=== PATIENT | female | born 1945 | race Caucasian/White ===

== ENCOUNTER → 2018-10-15 | Outpatient (CLI) | payer OTHER, MEDICARE | LOC: BHLMT 15:30 | PROVIDERS: ATTEND Internal Medicine Cardiovascular Disease | DX: R07.9 Chest pain, unspecified (principal); R00.2 Palpitations; I25.10 Atherosclerotic heart disease of native coronary artery without angina pectoris; E78.5 Hyperlipidemia, unspecified; I10 Essential (primary) hypertension; I25.2 Old myocardial infarction; Z95.5 Presence of coronary angioplasty implant and graft | CPT/HCPCS: 93005-PO ==

== ENCOUNTER 2018-12-13 07:56 | Observation (INO) | payer OTHER, MEDICARE ==
[2018-12-13] MEDS ORDERED: NS 1,000 ML IV ONE (07:57)
[2018-12-13] MEDS ORDERED: LIDOCAINE 1% 300 MG/30 ML SDV ONE (08:25)
[2018-12-13] MEDS ORDERED: HEPARIN 10,000 UNIT/10 ML MDV (1,000 UNIT/ML) ONE ×2 (08:25→08:26)
[2018-12-13] MEDS ORDERED: HEPARIN/DEXTROSE 25,000 UNIT/500 ML BAG ONE (08:26)
[2018-12-13] MEDS ORDERED: BUPIVACAINE 0.75% 10 ML SDV ONE (08:26)
[2018-12-13] MEDS ORDERED: ISOPROTERENOL HCL/D5W 0.2 MG/50 ML BAG IV ONE (08:26)
[2018-12-13 08:45] LABS: PLATELET COUNT 227 10^3/uL (150-400)
--- NOTE | 2018-12-13 09:13 | PDGENHP ---
History & Physical Chief Complaint: PVCs History of Present Illness: Symptomatic PVCs, idiopathic etiology Relevant Physical Exam: A+Ox4, RR with frequent ectopy, no MRG, CTAB Cardiorespiratory Assessment: PVCs -> ablation
[2018-12-13 09:31] LABS: PROTIME(PATIENT) 12.8 SEC (12.0-15.0)
--- NOTE | 2018-12-13 09:31 | PDANEPAE ---
ANE History of Present Illness PVC ablation ANE Past Medical History - Cardiovascular History Hx Hypertension: Yes Hx Arrhythmias: Yes Hx Chest Pain: No Hx Coronary Artery / Peripheral Vascular Disease: Yes - Pulmonary History Hx COPD: No Hx Asthma/Reactive Airway Disease: No Hx Recent Upper Respiratory Infection: No Hx Oxygen in Use at Home: No Hx Sleep Apnea: No ANE Review of Systems Review of systems is: negative Review of Systems: - Exercise capacity Exercise capacity: >=4 METS ANE Patient History - Allergies Allergies/Adverse Reactions: Beta-Blockers (Beta-Adrenergic Bloc Allergy (Severe, Verified 12/13/18 08:43) Other-Enter Comments Quinolones Allergy (Severe, Verified 12/13/18 08:44) Anaphylaxis Tetracyclines Allergy (Severe, Verified 12/13/18 08:44) Giovani Tylor Syndrome Sulfa (Sulfonamide Antibiotics) Allergy (Intermediate, Verified 12/13/18 08:44) Rash nebivolol [From Bystolic] Allergy (Verified 12/10/18 10:47) Dyspnea - Home Medications Home medications: home medication list seen and reviewed Home Medications: Albuterol [Proventil Inhaler HFA (*)] 1 - 2 puffs IH Q4H PRN 12/10/18 [Last Taken 12/13/18] Fluticasone Hfa 220 Mcg [Flovent 220 MCG Hfa MDI (*)] 1 puffs IH BID 12/10/18 [ Last Taken 12/13/18] Pantoprazole Sodium [Protonix 40mg (*)] 40 mg PO DAILY 12/10/18 [Last Taken ] Ranitidine HCl [Zantac] 150 mg PO HS 12/10/18 [Last Taken 12/13/18] Zolpidem Tartrate [Ambien] 10 mg PO HS PRN 12/10/18 [Last Taken 12/12/18] celeCOXIB [Celebrex (*)] 200 mg PO DAILY 12/10/18 [Last Taken 12/12/18] Aspirin/Sod Bicarb/Citric Acid [[place] Es Tab Eff] 3 tab PO BID 12/13/18 [ Last Taken 12/12/18 15:00] - Anes Hx Anes Hx: awareness under anesthesia - Smoking Hx Smoking Status: Former smoker ANE Labs/Vital Signs - Labs Result Diagrams: 12/13/18 08:10 12/13/18 08:10 - Vital Signs Height: 165.1 cm Weight: 85 kg ANE Physical Exam - Airway Neck exam: FROM Mallampati Score: Class 2 Mouth exam: normal dental/mouth exam - Pulmonary Pulmonary: no respiratory distress - Cardiovascular Cardiovascular: regular rate and rhythym - ASA Status ASA Status: III ANE Anesthesia Plan Anesthesia Plan: general endotracheal anesthesia
[2018-12-13] MEDS ORDERED: ROCURONIUM 100 MG/10 ML VIAL ONE (09:33)
[2018-12-13] MEDS ORDERED: fentaNYL 100 MCG/2 ML INJ ONE (09:33)
[2018-12-13] MEDS ORDERED: PROPOFOL 200 MG/20 ML VIAL ONE (09:34)
[2018-12-13] MEDS ORDERED: PROPOFOL/EMULSION 500 MG/50 ML BOTTLE IV ONE ×3 (09:41→12:04)
[2018-12-13] MEDS ORDERED: DEXAMETHASONE 4 MG/ML VIAL ONE (10:13)
[2018-12-13] MEDS ORDERED: PHENYLEPHRINE 10 MG/ML SDV ONE (10:13)
--- NOTE | 2018-12-13 10:21 | POSTANESTH ---
Post Anesthetic Evaluation Cardiovascular Status: Normal, Stable Respiratory Status: Normal, Stable Level of Consciousness/Mental Status: Can Participate in Eval, Alert and Oriented Pain Control: Adequate, Prn Tx Ordered Nausea/Vomiting Control: Adequate, Prn Tx Ordered Complications Possibly Related to Anesthesia: None Noted
--- NOTE | 2018-12-13 11:27 | CPEKG ---
Test Reason : OPEN Blood Pressure : / mmHG Vent. Rate : 103 BPM Atrial Rate : 044 BPM P-R Int : 188 ms QRS Dur : 098 ms QT Int : 375 ms P-R-T Axes : 067 058 044 degrees QTc Int : 491 ms Sinus rhythm Ventricular bigeminy Borderline T wave abnormalities Confirmed by Jacinto Guardado ([id number]) on 12/13/2018 11:26:27 AM Referred By: Diogenes Ventura Confirmed By:Jacinto Guardado
[2018-12-13] MEDS ORDERED: PROTAMINE SULFATE 50 MG/5 ML VIAL IVP ONE (13:09)
[2018-12-13] MEDS ORDERED: SUGAMMADEX SODIUM 200 MG/2 ML VIAL IVP ONE (13:09)
[2018-12-13] MEDS ORDERED: IOPAMIDOL (ISOVUE-300) 100 ML BTL ONE (13:10)
[2018-12-13] MEDS ORDERED: HYDROCODONE/APAP 5/325 TAB PO PRN (13:33)
[2018-12-13] MEDS ORDERED: ACETAMINOPHEN 325 MG TAB PO PRN (13:33)
[2018-12-13] MEDS ORDERED: ALBUTEROL 60 PUFFS/8 GM MDI IH PRN (13:36)
[2018-12-13] MEDS ORDERED: ZOLPIDEM TARTRATE 5 MG TAB PO PRN (13:49)
--- NOTE | 2018-12-13 14:29 | EPPROC ---
Electrophysiology Procedure Note: Date: 12/13/2018 [employer] House Supervisor: Jeronimo Ventura MD Procedures performed: Comprehensive EP study, catheter ablation of PVC 12218 Add on ablation of SVT 88755 Coronary sinus recording/pacing 61761 Intracardiac ECHO 93661 Transseptal access [id number] Attempted induction of arrhythmia following drug infusion 42259 Indications: 73-year-old female with symptomatic frequent unifocal PVCs, up to bigeminal at times, intolerant of beta-blockers. Techniques: Following informed consent, the patient was brought to the EP lab in a fasting nonsedated state, in sinus rhythm with frequent PVCs. PVC morphology was LBLI, slurred onset, QS in V1, with V2/3 transition (suspected lateral aspect RVOT). General anesthesia was provided by the anesthesiology service. Bilateral groins were prepped and draped in usual sterile fashion. 1 % lidocaine was infiltrated over the right femoral vessels, and under ultrasound guidance vascular access was obtained in the right femoral vein x3 ( 5 Qatari, 8 Qatari, Mobi 8.5 Qatari sheaths) and in the right femoral artery x1 (4 Qatari sheath, later upsized to ArrowFlex 8 Qatari sheath). Weight based heparin bolus and drip was administered, targeting ACT 300-350 seconds. A Sound Star intracardiac echo catheter was inserted in 1 of the right femoral venous sheaths, and advanced to right atrium. A Carto sound map was created of the CS ostium, aortic and pulmonic valves, LMCA and RCA takeoffs, RV, LV, papillary muscles. A Smart Touch SF ablation catheter was inserted, and used to create a CARTO map of the RV. Both pace mapping and LAT mapping were utilized to localize the unifocal PVC. Earliest activation in the RV was found on the anteroseptal aspect of the RV OT, with 98% pace match and pre QRS potentials of -35 milliseconds. RF ablation was performed in this region at 30- 40 w power, however following local ablation in this region, the PVCs were suppressed but not entirely eliminated. Intracardiac echo survey of the ablated region suggested that the targeted region was bounded by the septal LVOT as well as the LV [place]. The decision was made to proceed with left- sided ablation. A BRK 1 needle was inserted in the mobi sheath, and the system was positioned at the fossa ovalis under ICE guidance. The fossa was crossed, and the transseptal sheath was advanced to the mid LA. The sheath was connected to continuous saline irrigation. The ablation catheter was advanced to the LV, and attempt was made to map the septal LVOT; however, due to the small LV cavity size, manipulation of the catheter was quite difficult in the LV , and the decision was made for retrograde approach. The 4 Qatari arterial sheath was upsized to the 8 Qatari arrow flex sheath, and a retrograde approach was taken with the ablation catheter. The ablation catheter was prolapsed across aortic valve, and LAT mapping of the septal aspect of the LVOT was undertaken. The local activation in this region was well past the QRS onset. RF ablation was performed in the septal LVOT, abutting the previously placed RV OT lesion set, at 30-35 Ayoub. Unfortunately, the ambient PVCs were still ongoing. The ablation catheter was then positioned in the coronary sinus, and an attempt was made to advance the catheter to the distal CS/AIV. However, the ablation catheter could not be advanced beyond the 2 o'clock position on the CS. At this stage, the decision was made to terminate attempts for further PVC ablation, given a relative suppression of the ambient PVC. During PVC mapping and ablation, the patient demonstrated several episodes of sustained narrow complex tachycardia, long RP, which initiated reliably with ventricular ectopy with VA jump; and was easily terminated with either ventricular or atrial overdrive pacing; during atrial overdrive pacing, onset of AV block reliably predicted termination of the SVT. 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 Thus, following PVC ablation, comprehensive EP study was undertaken to better identify this SVT. The ice catheter was removed, and a quad catheter was positioned in the RVa; decapolar catheter in the CS; ablation catheter at the his position (AH 106ms, HV 44ms). Antegrade conduction, pacing from CS proximal bipole, showed no evidence of dual AV keiko physiology. AV BLC 420ms AERP 600/270ms AVN ERP <600/280ms, 600/350/380ms Retrograde conduction from RVa showed evidence of dual AV keiko physiology; nonsustained SVT was inducible with VA jump. VA BCL 500ms With VA jump, 3-4 beats of nonsustained SVT was reliably inducible - long RP, TCL 430ms, concentric RAAS. 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 A CARTO map was created of the right atrium, proximal CS; the his position was annotated on the map. The slow pathway region was localized using anatomic landmarks and local potentials. RF ablation was performed in the slow pathway region at 25-30 w, during which junctional automaticity was observed, with consistent antegrade and retrograde conduction. Following ablation, EP study was repeated in the baseline state and on isoproterenol. Retrograde conduction following ablation showed no evidence of dual AV keiko physiology; SVT was no longer inducible in either the baseline state or on isoproterenol 8mcg/min. VA ERP 600/510ms At the completion of the procedure, final ICE survey showed no evidence of pericardial effusion; there was normal biventricular systolic function. All catheters were removed. All sheaths were aspirated and flushed. An ejection of contrast through the RFA sheath showed right femoral arterial anatomy amenable to deployment of Angio-Seal. An 8 Qatari Angio-Seal was deployed without difficulty. The venous sheaths were then removed, and manual pressure was held until hemostasis. A temporary hemostasis suture was applied to the right groin access site. The patient tolerated the procedure well. EBL: Minimal Complications: None Plan 6 hr bedrest ICU overnight observation CBC, BMP, troponin, echo in a.m. Aspirin 325 mg daily for 1 month Start verapamil 120 mg daily for 1-2 months, to suppress post ablation ectopy Monitor for PVC recurrence with ambulatory monitoring after the postablation healing period
[2018-12-13] MEDS: ASPIRIN 325 MG TAB PO SCH (14:34)
[2018-12-13] MEDS: VERAPAMIL ER 120 MG TAB PO SCH (14:34)
[2018-12-13] MEDS ORDERED: CALCIUM CARBONATE 500 MG CHEWABLE TAB PO PRN (15:49)
[2018-12-13] MEDS ORDERED: FLUTICASONE HFA 220 MCG MDI IH SCH (21:00)
[2018-12-14 05:56] LABS: PLATELET COUNT 211 10^3/uL (150-400)
[2018-12-14 06:20] LABS: CREATINE KINASE 148 IU/L (0-156)
[2018-12-14] MEDS ORDERED: PANTOPRAZOLE SODIUM 40 MG TAB PO SCH (09:00)
[2018-12-14] MEDS ORDERED: FLUTICASONE HFA 110 MCG MDI IH SCH (09:00)
[2018-12-14] MEDS: ASPIRIN 325 MG TAB PO SCH (09:30)
--- NOTE | 2018-12-14 10:06 | ECHO ---
[email or web address] [address] [address] Main: [phone] Echocardiography Examination Transthoracic Name: CATHRYN MARTIN MR#: [id number] JOYCE Study Date: 12/14/2018 Study Time: 08:28 AM Date of : 1945 Age: 73 year(s) Height: 165.1 cm (65 in.) Weight: 84.82 kg (187 lb.) BSA: 1.92 m2 Gender: Female Examination: Echo Contrast: Image Quality: Adequate Rhythm: Heart Rate: BP: 135 mmHg/71 mmHg Indication: F/U Post EP Study Procedure Staff Referring Physician: Flight Attendant: Ashley Schaffer [facility] Reading Physician: Theo Brasher MD Requesting Provider: Ordering Physician: Diogenes Ventura MD Indication: F/U Post EP Study Measurements Chambers AV/MV Label Value Normal Value Label Value Normal Value EF lower range (%) 55 % AV PGmax 5 mmHg EF upper range (%) 60 % AV PGmean 3 mmHg IVSd, 2D 1.5 cm (0.6cm - 1.1cm) AV Vmax 1.13 m/s LVDd, 2D 4 cm (3.9cm - 5.3cm) SALUD D (continuity eq. 1.5 cm2 LVDs, 2D 3 cm (2.1cm - 4cm) VTI) LVEF, 2D 52 % (54% - 74%) MR (ERO) 0.16 cm2 LVOT PGmean 1 mmHg MR PISA Alias V. 38.5 cm/s LVOT Vmean 0.54 m/s MR PISA Radius 0.6 cm LVOTd 1.9 cm (1.8cm - 2cm) MR Reg. Volume 32 ml LVPWd, 2D 1.2 cm MR Vmax 5.45 m/s RVDd, 2D 3.2 cm (1.9cm - 3.8cm) MR VTI 203 cm LA Volume, BP 49 ml (22ml - 52ml) MV A Vmax 0.75 m/s LADs, 2D 3.6 cm (2.7cm - 3.8cm) MV DT 183 ms LAESV index, BP 25.5 ml/m2 MV E' lateral 0.08 m/s Additional Vessels MV E' mean 0.08 m/s Label Value Normal Value MV E' septal 0.08 m/s AoAsc 2.5 cm MV E Vmax 0.7 m/s AoRoot, 2D 2.5 cm (1.4cm - 2.6cm) MV E/A 0.93 MV E/E' lateral 9.3 Patient: CATHRYN COOK Study Date: 12/14/2018 Page 1 of 3 08:28 AM IVC 1.5 cm (1.2cm - 2.3cm) MV E/E' mean 8.75 MV E/E' septal 8.8 (0.45 - 1.25) MV PHT 0.06 s MV PHT 56 ms MVA PHT 3.9 cm2 TV/PV Label Value Normal Value RA Pressure 5 mmHg RVSP 39 mmHg TR Pmax 34 mmHg TR Vmax 2.92 m/s PV PGmax 2 mmHg PV Vmax, Caliper 0.76 m/s (0.6m/s - 0.9m/s) Conclusions Overall Conclusions: Normal study Findings Left Ventricle: Left ventricle is normal in size. Normal global systolic left ventricular function. EF range is estimated at 55 % - 60 %. There is asymmetrical septal hypertrophy. There are no regional wall motion abnormalities. Cannot determine LAP and Diastolic Dysfunction Grade. Right Ventricle: Normal size right ventricle. Right ventricular systolic function is normal. Left Atrium: The left atrium is normal in size. Mitral Valve: Moderate eccentric mitral regurgitation. Mitral valve appears structurally normal. No mitral valve stenosis. Aortic Valve: Aortic leaflets are structurally normal. No significant aortic valve regurgitation. There is no aortic stenosis. Tricuspid Valve: Tricuspid valve leaflets are structurally normal. Mild to moderate tricuspid regurgitation. No tricuspid valve stenosis. Right Ventricular systolic pressure is measured at 39 mmHg. Pulmonary artery pressure slightly increased. Pulmonic Valve: Pulmonic leaflets are structurally normal. Trivial pulmonic valve regurgitation is present. Aorta: The aortic root size in 2D measures 2.5 cm. The ascending aorta measures 2.5 cm. Aorta Measurements AoRoot, 2D is 2.5 cm. IVC: The inferior vena cava is normal in size. Pericardium: No pericardial effusion. Exam Details Procedure Ordered: Echo Procedure Status: Routine study Image Quality: Adequate Facility Location: Cardiac Echo 1 Patient: CATHRYN COOK Study Date: 12/14/2018 Page 2 of 3 08:28 AM (No Signature Object) Patient: CATHRYN COOK Study Date: 12/14/2018 Page 3 of 3 08:28 AM [id number]
[2018-12-14] MEDS: VERAPAMIL ER 120 MG TAB PO SCH (10:14)
[2018-12-14 10:28] VITALS: BP 170/81
--- NOTE | 2018-12-14 11:53 | ASDISCHSUM ---
Discharge Information Plan Status:Home with No Needs Medically Cleared to Leave:12/14/2018 Discharge Date:12/14/2018 CM D/C Disposition:Home, Routine, Self-Care ADT D/C Disposition:Home, Routine, Self-Care Projected Discharge Date:12/14/2018 Transportation at D/C: Discharge Delay Reason: Follow-Up Date:12/14/2018 Discharge Slot: Final Diagnosis: Placement Information Patient Contact Information Contact Name:TERRELL Relationship: Address:[address] Work Phone: City:[facility] Phone: State/Zip Code:[place] [address] Email: Financial Information Financial Class:Medicare Primary Plan Desc:MEDICARE OUTPATIENT Primary Plan Number:[id number] Secondary Plan Desc:PAWEL/[employer] SUPPLEMENT Secondary Plan Number:[id number] Assessment Information LACE LACE Length of stay for Answers: Less than 1 day current admission Acuity / Level of Answers: No Care: Did the patient have an inpatient admission? Comorbidities - select Answers: Coronary Artery Disease all that apply Other Notes: HTN # of Emergency department Answers: 0 visits in the last 6 months Score: 3 Date Signed: 12/14/2018 11:52 AM Electronically Signed By:ARTI Pinto Case Management Discharge Plan Note Case Management Discharge Discharge Order Complete? Answers: Yes Patient to Obtain Answers: via Family Medications Transportation Arranged Answers: Family/Friends Discharge Comments Notes: Pt care discussed in rounds and with RN. Pt underwent PVC ablation. Lives with . No CM needs identified. Pt is being discharged independently and will follow-up in outpatient as indicated. Family to transport. Date Signed: 12/14/2018 11:51 AM Electronically Signed By:ARTI Pinto Intervention Information
--- NOTE | 2018-12-14 18:14 | GDS ---
[f rep st] DISCHARGE SUMMARY DISCHARGE DIAGNOSES: 1. Premature ventricular contractions. 2. Status post premature ventricular contractions ablation. 3. Status post atrioventricular keiko reentrant tachycardia ablation. BRIEF HISTORY: This is a 73-year-old woman with frequent unifocal PVCs that are extremely symptomatic. She has been intolerant of beta blockers. HOSPITAL COURSE: Dr. Ventura performed PVC ablation and this was done with transseptal access. PVC location was in the LV Mcminn. During ablation, patient developed frequent episodes of SVT that needed pace termination. Post PVC ablation, a comprehensive EP study was done with AVNRT easily inducible. Slow pathway was ablated. Patient did well overnight with no symptoms of chest pain or shortness of breath. She did continue to have PVCs on telemetry; however did not voice any symptoms. During the morning, the PVCs have significantly decreased on telemetry monitoring. TESTING DONE: EKG demonstrates sinus rhythm with [address]-T wave changes. Echocardiogram demonstrated normal LV ejection fraction 55% to 60%. Moderate eccentric MR. No pericardial effusion. LAB WORK: WBC 8.2, hemoglobin 14, hematocrit 41.4, platelets 211. Sodium 140, potassium 4.0, chloride 111, bicarb 23, BUN 19, creatinine 1.0, glucose is 144, CK is 148 troponin is 1.310. PHYSICAL EXAM: VITAL SIGNS: Blood pressure is 123/51, pulse is 71, respirations 19, temperature is 36, O2 saturation is 95% on room air. GENERAL: She is alert and oriented sitting up in her chair. CARDIAC: Regular rate and rhythm without murmur, rub, or gallop. LUNGS: Clear to auscultation. ABDOMEN: Soft and nontender. EXTREMITIES: Warm. 2+ 2 bilateral pedal pulses. No lower extremity edema. GROIN SITE: 1 stitch was removed. There is no bleeding or hematoma. DISCHARGE INSTRUCTIONS: Post-ablation groin precautions were reviewed with the patient verbally and she was given written instructions. DISCHARGE MEDICATIONS: She will continue current home medications as well as adding verapamil 120 mg daily for at least 2 months if she does not have side effects with this. She will continue her daily aspirin. FOLLOWUP: She has follow up with Dr. Ventura on January 11 at 10:30. ADDENDUM Jeronimo Ventura MD - agree with the assessment and plan as documented by Ms Wang. Postop day 1 from a ablation of LV Mcminn PVC, as well as atypical AVNRT. Doing well. PVC appears to have been suppressed, but not entirely eliminated; we will initiate verapamil therapy, and reassess in 2 months time, after post ablation injury has settled. /[id number]/MODL MTDD
--- NOTE | 2018-12-15 11:44 | CPEKG ---
Test Reason : OPEN Blood Pressure : / mmHG Vent. Rate : 084 BPM Atrial Rate : 082 BPM P-R Int : 182 ms QRS Dur : 094 ms QT Int : 400 ms P-R-T Axes : 075 050 092 degrees QTc Int : 473 ms Sinus rhythm Ventricular trigeminy Nonspecific T abnormalities, lateral leads Less frequent PVCs in this study (previously bigeminy) Confirmed by Jacinto Guardado ([id number]) on 12/15/2018 11:43:47 AM Referred By: Diogenes Ventura Confirmed By:Jacinto Guardado
--- NOTE | 2018-12-15 11:47 | CPEKG ---
Test Reason : OPEN Blood Pressure : / mmHG Vent. Rate : 069 BPM Atrial Rate : 068 BPM P-R Int : 175 ms QRS Dur : 095 ms QT Int : 399 ms P-R-T Axes : 073 057 067 degrees QTc Int : 428 ms Sinus rhythm Ventricular bigeminy Confirmed by Jacinto Guardado ([id number]) on 12/15/2018 11:47:14 AM Referred By: Diogenes Ventura Confirmed By:Jacinto Guardado
== END 2018-12-14 12:00 | disposition home or self-care (01) ==
LOC: FCATH 07:56 → F2N 13:34
PROVIDERS: ADMIT Internal Medicine Cardiovascular Disease; ATTEND Internal Medicine Cardiovascular Disease
DX: I49.3 Ventricular premature depolarization (principal); I25.10 Atherosclerotic heart disease of native coronary artery without angina pectoris; I25.2 Old myocardial infarction; I10 Essential (primary) hypertension; E78.5 Hyperlipidemia, unspecified; J45.909 Unspecified asthma, uncomplicated; Z79.82 Long term (current) use of aspirin; Z87.891 Personal history of nicotine dependence; Z95.5 Presence of coronary angioplasty implant and graft; Z88.2 Allergy status to sulfonamides
CPT/HCPCS: 93005; 93306; 93621; 93623; 93654; 93655; 93662; C1730; C1732; C1759; C1760; C1766; J1100; J1644; J2370; J2704; J2720; J3010; Q9967